=== PATIENT | female | born 1975 | race Hispanic/Latino ===

== ENCOUNTER → 2023-10-17 16:29 | Outpatient (REF) | payer OTHER, SELFPAY | LOC: WDC 16:29 | PROVIDERS: ATTENDING PHYSICIAN Internal Medicine Hematology & Oncology; FAMILY PHYSICIAN Physician Assistant Medical | DX: Z12.31 Encounter for screening mammogram for malignant neoplasm of breast (principal) | CPT/HCPCS: 77063; 77067 ==

== ENCOUNTER → 2024-05-01 07:54 | Outpatient (REF) | payer OTHER, SELFPAY | LOC: WDC 07:54 | PROVIDERS: ATTENDING PHYSICIAN Internal Medicine Hematology & Oncology; FAMILY PHYSICIAN Physician Assistant Medical | DX: R92.2 Inconclusive mammogram (principal) | CPT/HCPCS: 76641 ==

== ENCOUNTER → 2024-10-17 15:05 | Outpatient (REF) | payer OTHER, SELFPAY | LOC: WDC 15:05 | PROVIDERS: ATTENDING PHYSICIAN Internal Medicine Hematology & Oncology; FAMILY PHYSICIAN Physician Assistant Medical | DX: Z12.31 Encounter for screening mammogram for malignant neoplasm of breast (principal) | CPT/HCPCS: 77063; 77067 ==

== ENCOUNTER → 2024-10-24 12:45 | Outpatient (REF) | payer OTHER, SELFPAY | LOC: RAD 12:45 | PROVIDERS: ATTENDING PHYSICIAN Internal Medicine Hematology & Oncology; FAMILY PHYSICIAN Physician Assistant Medical | DX: C50.112 Malignant neoplasm of central portion of left female breast (principal) | CPT/HCPCS: 77080 ==

== ENCOUNTER → 2025-06-04 10:58 | Outpatient (REF) | payer OTHER, SELFPAY | LOC: WDC 10:58 | PROVIDERS: ATTENDING PHYSICIAN Family Medicine Geriatric Medicine; FAMILY PHYSICIAN Physician Assistant Medical | DX: R92.333 Mammographic heterogeneous density, bilateral breasts (principal) | CPT/HCPCS: 76641 ==